=== PATIENT | male | born 2000 ===

== ENCOUNTER 2021-04-19 21:27 | Emergency (ER) | payer SELFPAY ==
[~2021-04-19] VITALS: Ht 175.3 cm; Wt 59.1 kg
--- NOTE | 2021-04-19 22:36 | NUR ---
PT WHEELED TO ROOM ATT [facility]
[2021-04-19 22:43] LABS: BASOPHILS % (AUTO) 0 % (0-1); EOSINOPHILS % (AUTO) 3 % (1-7); LYMPHOCYTES % (AUTO) 31 % (22-44); MEAN CORPUSCULAR HEMOGLOBIN 31.1 pg (27.5-34.5); MEAN CORPUSCULAR HGB CONC 34.3 g/dL (33.2-36.2); MEAN PLATELET VOLUME 8.7 fL (7.4-10.4); MONOCYTES % (AUTO) 8 % (2-9); NEUTROPHILS % (AUTO) 57 % (42-75); PLATELET COUNT 294 x10^3/uL (130-400); RED BLOOD COUNT 5.56 x10^6/uL (4.38-5.82); RED CELL DISTRIBUTION WIDTH 13.2 % (9.4-14.8)
[2021-04-19 22:53] LABS: ALBUMIN 4.9 g/dL (3.4-5.0); CALCIUM 9.8 mg/dL (8.5-10.1); CREATININE 1.02 mg/dL (0.7-1.3)
[2021-04-19 23:00] LABS: ANION GAP 9 mmol/L (5-15); CHLORIDE 106 mmol/L (98-107)
--- NOTE | 2021-04-19 23:21 | NUR ---
DR. MACDONALD AT THE BEDSIDE DOING LUMBAR PUNCTURE. PATIENT AND FATHER INFORMED ABOUT PROCEDURE. PATIENT OKAY WITH PROCEDURE TO BE COMPLETED AND SIGNED CONSENT FOR PROCEDURE
--- NOTE | 2021-04-19 23:41 | NUR ---
CSF WALKED TO THE LAB
[2021-04-20 00:21] LABS: GLUCOSE, CSF 56 mg/dL (40-80); TOTAL PROTEIN,CSF 39 mg/dL (15-45)
[2021-04-20 01:15] VITALS: BP 121/72
== END 2021-04-20 01:30 | disposition home or self-care (01) ==
LOC: ED 22:00
DX: G43.C0 Periodic headache syndromes in child or adult, not intractable (principal); B34.9 Viral infection, unspecified; M79.10 Myalgia, unspecified site; G43.909 Migraine, unspecified, not intractable, without status migrainosus
CPT/HCPCS: 36415; 62270; 70450; 80048; 82040; 82945; 84157; 85025; 87070; 87205; 89051; 99285